=== PATIENT | female | born 1985 | race Caucasian/White ===

== ENCOUNTER 2017-08-27 19:39 | Emergency (ER) | payer OTHER, SELFPAY ==
--- NOTE | 2017-08-27 20:42 | ER ---
Nurse's Notes [facility] Name: Marilin Douglas Age: 32 yrs Sex: Female : 1985 Arrival Date: 08/27/2017 Time: 19:40 Bed 15 Private MD: Diagnosis: Cutaneous abscess of abdominal wall Presentation: 08/27 19:55 Presenting complaint: Patient states: She noticed an abscess form on her abdomen 2 days ea ago, today she started to have pain to the area, when she arrived to ED she noticed the abscess had opened up. Transition of care: patient was not received from another setting of care. Onset of symptoms was August 27, 2017. Risk Assessment: Do you want to hurt yourself or someone else? Patient reports no desire to harm self or others. Initial Sepsis Screen: Does the patient meet any 2 criteria? No. Patient's initial sepsis screen is negative. Does the patient have a suspected source of infection? Yes: Other: purulent draining from abscess. Care prior to arrival: None. 19:55 Method Of Arrival: Ambulatory ea 19:55 Acuity: ZAKIA 4 ea Triage Assessment: 19:59 General: Appears uncomfortable, Behavior is appropriate for age. Pain: Complains of ea pain in abdomen. Derm: abscess to left lower abdominal quadrant with purulent drainage noted. 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 - Social history:: Smoking status: Patient uses tobacco products, denies chronic smoking, but will smoke occasionally. - Ebola Screening: : No symptoms or risks identified at this time. Screenin:01 Abuse screen: Denies threats or abuse. Nutritional screening: No deficits noted. ea Tuberculosis screening: No symptoms or risk factors identified. Fall Risk None identified. Assessment: 19:51 General: Appears uncomfortable, Behavior is anxious. Pain: Complains of pain in left jd3 lower quadrant. Neuro: Level of Consciousness is awake, alert, obeys commands, Oriented to person, place, time, situation. Cardiovascular: Capillary refill < 3 seconds Patient's skin is warm and dry. Respiratory: Airway is patent Respiratory effort is even, unlabored, Respiratory pattern is regular, symmetrical, Breath sounds are clear bilaterally. GI: Abdomen is round Bowel sounds present X 4 quads. Abd is soft Abdomen is tender to palpation in left lower quadrant Reports lower abdominal pain. : No signs and/or symptoms were reported regarding the genitourinary system. EENT: Derm: Skin is intact, Skin is dry, Skin is normal, Skin temperature is warm Abscess located on left lower quadrant is orange sized has purulent drainage, has foul odor, is hot to touch, is red, is raised. Musculoskeletal: Circulation, motion, and sensation intact. Range of motion: intact in all extremities. 20:50 Reassessment: pt reusing care care until family could be present. pt with unknown jd3 location or how long family will take to get to the hospital. pt signed AMA form and walked with even and steady gait out front of ER. Vital Signs: 20:00 BP 134 / 96; Pulse 98; Resp 18; Temp 98.4; Pulse Ox 100% on R/A; Weight 77.11 kg; ea Height 5 ft. 2 in. (157.48 cm); Pain 10/10; 20:00 Body Mass Index 31.09 (77.11 kg, 157.48 cm) ea ED Course: 19:40 Patient arrived in ED. ds1 19:51 Preet Walsh, LISA is Primary Nurse. jd3 19:55 Rickey Ngo NP is PHCP. pm1 19:55 Anand Nick MD is Attending Physician. pm1 19:57 Triage completed. ea 20:01 Arm band placed on right wrist. Patient placed in an exam room, on a stretcher. ea 20:01 Patient has correct armband on for positive identification. Bed in low position. Call ea light in reach. Side rails up X 1. 20:28 Radiology exam delayed due to pt stated she is not having exam done until family member cy arrives. 20:47 No provider procedures requiring assistance completed. Patient did not have IV access jd3 during this emergency room visit. Administered Medications: 20:53 Not Given (Patient Refused): Tetanus-Diphtheria Toxoid Adult 0.5 ml IM once jd3 Outcome: 20:47 Patient left the ED. jd3 20:47 AMA AMA form signed jd3 20:47 Condition: stable 20:47 Instructed on follow up and referral plans. Demonstrated understanding of instructions. Signatures: Maisha Anthony ds1 Rickey Ngo NP ALGOLOGY TEACHER pm1 Anahy Flores RN RN ea Davies, Jonathon, RN RN jd3 Yong, Chheannith cy
--- NOTE | 2017-08-27 20:42 | EDPHYS ---
Physician Documentation [facility] Name: Marilin Douglas Age: 32 yrs Sex: Female : 1985 Arrival Date: 08/27/2017 Time: 19:40 Bed 15 Private MD: ED Physician Anand Nick HPI: 08/27 20:05 This 32 yrs old Female presents to ER via Ambulatory with complaints of pm1 Abscess. 20:05 The patient presents with an abscess of the left lower quadrant. Description: draining, pm1 raised. Onset: The symptoms/episode began/occurred 2 day(s) ago. Possible cause(s): unknown, drug abuse - patient skin pops with heroine. Associated signs and symptoms: Pertinent negatives: fever. Modifying factors: the symptoms are aggravated by squeezing the lesion and expressing the contents, touching. Severity of symptoms: in the emergency department the symptoms are actually worse. The patient has experienced similar episodes in the past, multiple times. The patient has not recently seen a physician, and does not have an established primary care provider. 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 - Social history:: Smoking status: Patient uses tobacco products, denies chronic smoking, but will smoke occasionally. - Ebola Screening: : No symptoms or risks identified at this time. ROS: 20:05 Constitutional: Negative for fever, chills, and weight loss, Eyes: Negative for injury, pm1 pain, redness, and discharge, ENT: Negative for injury, pain, and discharge, Neck: Negative for injury, pain, and swelling, Cardiovascular: Negative for chest pain, palpitations, and edema, Respiratory: Negative for shortness of breath, cough, wheezing, and pleuritic chest pain, Abdomen/GI: Negative for abdominal pain, nausea, vomiting, diarrhea, and constipation, Back: Negative for injury and pain, MS/Extremity: Negative for injury and deformity. 20:05 Neuro: Negative for headache, weakness, numbness, tingling, and seizure. 20:05 Skin: Positive for abscess, of the left lower quadrant. Exam: 20:05 Constitutional: This is a well developed, well nourished patient who is awake, alert, pm1 and in no acute distress. Head/Face: Normocephalic, atraumatic. Chest/axilla: Normal chest wall appearance and motion. Nontender with no deformity. No lesions are appreciated. Cardiovascular: Regular rate and rhythm with a normal S1 and S2. No gallops, murmurs, or rubs. Normal PMI, no JVD. No pulse deficits. Respiratory: Lungs have equal breath sounds bilaterally, clear to auscultation and percussion. No rales, rhonchi or wheezes noted. No increased work of breathing, no retractions or nasal flaring. Abdomen/GI: Soft, non-tender, with normal bowel sounds. No distension or tympany. No guarding or rebound. No evidence of tenderness throughout. Back: No spinal tenderness. No costovertebral tenderness. Full range of motion. 20:05 MS/ Extremity: Pulses equal, no cyanosis. Neurovascular intact. Full, normal range of motion. 20:05 Skin: Appearance: normal except for affected area, abscess, that is large, approximately 7 cm(s), of the left lower quadrant, with drainage, with fluctuance. 20:05 Neuro: Orientation: is normal, Motor: is normal, moves all fours. Vital Signs: 20:00 BP 134 / 96; Pulse 98; Resp 18; Temp 98.4; Pulse Ox 100% on R/A; Weight 77.11 kg; ea Height 5 ft. 2 in. (157.48 cm); Pain 10/10; 20:00 Body Mass Index 31.09 (77.11 kg, 157.48 cm) ea MDM: 20:00 Patient medically screened. pm1 20:36 Data reviewed: vital signs. Data interpreted: Pulse oximetry: on room air is 100 %. pm1 Interpretation: normal. Refusal of service: The patient/guardian displays adequate decision making capability and despite a detailed discussion of alternatives, benefits, risks, and consequences refuses: Refused the ultrasound and IV saline lock. Patient does not want treatment now and wants her boyfriend present prior to doing any work up. Administered Medications: 20:53 Not Given (Patient Refused): Tetanus-Diphtheria Toxoid Adult 0.5 ml IM once jd3 Disposition: 08/28 08:09 Co-signature as Attending Physician, Anand Nick MD I agree with the assessment and dae plan of care. Disposition: 08/27/17 20:41 Patient has left against medical advice. Impression: Cutaneous abscess of abdominal wall. - Patients states they are going to Home. - Condition is Undetermined. - Discharge Instructions: Abscess, Incision and Drainage. - Prescriptions for Clindamycin HCl 300 mg Oral Capsule - take 1 capsule by ORAL route every 6 hours for 10 days; 40 capsule. Bactrim DS 800- 160 mg Oral Tablet - take 1 tablet by ORAL route every 12 hours for 10 days; 20 tablet. Follow up: Emergency Department; When: As needed; Reason: Worsening of condition. Follow up: Private Physician; When: Upon discharge from the Emergency Department; Reason: Wound Recheck, Recheck today's complaints, Continuance of care, Re-evaluation by your physician. - Problem is new. - Symptoms are unchanged. Signatures: Dispatcher [employer] EDAnand Dutton MD MD cha Marinas, Patrick, GAS TORCH BRAZIER GAS TORCH BRAZIER pm1 Anahy Flores RN RN ea Davies, Jonathon, RN RN jd3 Corrections: (The following items were deleted from the chart) 08/27 20:47 20:41 08/27/2017 20:41 Patients has left against medical advice. Impression: Cutaneous jd3 abscess of abdominal wall. Patient states they are going to Home. Condition is Undetermined. Follow up: Emergency Department; When: As needed; Reason: Worsening of condition. Follow up: Private Physician; When: Upon discharge from the Emergency Department; Reason: Wound Recheck, Recheck today's complaints, Continuance of care, Re-evaluation by your physician. Problem is new. Symptoms are unchanged. pm1
[2017-08-27 20:50] VITALS: BP 134/96; TEMP 98.4; O2SAT 100
== END 2017-08-27 20:47 | disposition left against medical advice (07) ==
LOC: ER 19:39
DX: L02.211 Cutaneous abscess of abdominal wall (principal); F17.200 Nicotine dependence, unspecified, uncomplicated
CPT/HCPCS: 99281

== ENCOUNTER 2017-08-28 02:28 | Inpatient (IN) | payer SELFPAY ==
[2017-08-28] MEDS ORDERED: CLINDAMYCIN 600MG/D5W 0 MG/0 ML BAG IV ONE (03:05)
[2017-08-28] MEDS ORDERED: NA CHLORIDE 0.9% 1,000 ML ONE (03:06)
[2017-08-28] MEDS ORDERED: VANCOMYCIN 0 GM/0 ML BAG ONE (03:06)
[2017-08-28] MEDS ORDERED: CLINDAMYCIN 900MG/D5W 900 MG/50 ML BAG IV ONE (03:15)
--- NOTE | 2017-08-28 03:21 | EDPHYS ---
Physician Documentation [facility] Name: Marilin Douglas Age: 32 yrs Sex: Female : 1985 Arrival Date: 08/28/2017 Time: 02:28 Bed 20 Private MD: ED Physician Anand Nick HPI: 08/28 03:15 This 32 yrs old Female presents to ER via Ambulatory with complaints of dae Abscess. 03:15 The patient presents with an abscess of the left lower quadrant. Description: The dae affected area is moderate sized, confluent, well demarcated. Onset: The symptoms/episode began/occurred 3 day(s) ago. Possible cause(s): unknown. Associated signs and symptoms: The patient has no apparent associated signs or symptoms. Severity of symptoms: At their worst the symptoms were mild, moderate, in the emergency department the symptoms are unchanged. The patient has not experienced similar symptoms in the past. 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 - Social history:: Smoking status: Patient uses tobacco products, smokes one pack cigarettes per day. - Ebola Screening: : No symptoms or risks identified at this time. - Family history:: not pertinent. ROS: 03:15 Constitutional: Negative for fever, chills, and weight loss, Eyes: Negative for injury, dae pain, redness, and discharge, ENT: Negative for injury, pain, and discharge, Neck: Negative for injury, pain, and swelling, Cardiovascular: Negative for chest pain, palpitations, and edema, Respiratory: Negative for shortness of breath, cough, wheezing, and pleuritic chest pain, Back: Negative for injury and pain, : Negative for injury, bleeding, discharge, and swelling, MS/Extremity: Negative for injury and deformity, Neuro: Negative for headache, weakness, numbness, tingling, and seizure, Psych: Negative for depression, anxiety, suicide ideation, homicidal ideation, and hallucinations, Allergy/Immunology: Negative for hives, rash, and allergies, Endocrine: Negative for neck swelling, polydipsia, polyuria, polyphagia, and marked weight changes, Hematologic/Lymphatic: Negative for swollen nodes, abnormal bleeding, and unusual bruising. 03:15 Abdomen/GI: Positive for abdominal pain, of the left lower quadrant. 03:15 Skin: Positive for cellulitis, swelling, of the left lower quadrant. Exam: 03:15 Constitutional: This is a well developed, well nourished patient who is awake, alert, dae and in no acute distress. Head/Face: Normocephalic, atraumatic. Eyes: Pupils equal round and reactive to light, extra-ocular motions intact. Lids and lashes normal. Conjunctiva and sclera are non-icteric and not injected. Cornea within normal limits. Periorbital areas with no swelling, redness, or edema. ENT: Nares patent. No nasal discharge, no septal abnormalities noted. Tympanic membranes are normal and external auditory canals are clear. Oropharynx with no redness, swelling, or masses, exudates, or evidence of obstruction, uvula midline. Mucous membranes moist. Neck: Trachea midline, no thyromegaly or masses palpated, and no cervical lymphadenopathy. Supple, full range of motion without nuchal rigidity, or vertebral point tenderness. No Meningismus. Chest/axilla: Normal chest wall appearance and motion. Nontender with no deformity. No lesions are appreciated. Respiratory: Lungs have equal breath sounds bilaterally, clear to auscultation and percussion. No rales, rhonchi or wheezes noted. No increased work of breathing, no retractions or nasal flaring. Back: No spinal tenderness. No costovertebral tenderness. Full range of motion. MS/ Extremity: Pulses equal, no cyanosis. Neurovascular intact. Full, normal range of motion. Neuro: Awake and alert, GCS 15, oriented to person, place, time, and situation. Cranial nerves II-XII grossly intact. Motor strength 5/5 in all extremities. Sensory grossly intact. Cerebellar exam normal. Normal gait. Psych: Awake, alert, with orientation to person, place and time. Behavior, mood, and affect are within normal limits. 03:15 Cardiovascular: Rate: tachycardic, Rhythm: regular, Pulses: Pulses are 4+ in bilateral radial, brachial, femoral, popliteal, posterior tibial and and dorsalis pedis arteries.. Heart sounds: normal, Edema: is not appreciated, JVD: is not appreciated. Vital Signs: 02:43 BP 131 / 90; Pulse 104; Resp 18; Temp 98.7(O); Pulse Ox 98% on R/A; Weight 72.57 kg; ea Height 5 ft. 2 in. (157.48 cm); Pain 9/10; 03:57 BP 128 / 95; Pulse 100; Resp 18; Pulse Ox 100% on R/A; ea 04:45 BP 115 / 59; Pulse 68; Resp 18; Pulse Ox 99% on R/A; ea 05:46 BP 115 / 59; Pulse 55; Resp 18 S; Temp 97.8; Pulse Ox 99% on R/A; ea 02:43 Body Mass Index 29.26 (72.57 kg, 157.48 cm) ea MDM: 02:55 Patient medically screened. [facility] 03:15 Data reviewed: vital signs, nurses notes, lab test result(s). [facility] 08/28 02:52 Order name: CBC with Diff [facility] 08/28 02:52 Order name: Chem 7 [facility] 08/28 02:52 Order name: Urine Culture [facility] 08/28 02:52 Order name: Urine Drug Screen; Complete Time: 05:05 snw 08/28 02:53 Order name: CBC with Automated Diff; Complete Time: 05:05 EDMS 08/28 02:53 Order name: Basic Metabolic Panel; Complete Time: 05:05 EDMS 08/28 03:26 Order name: Basic Metabolic Panel EDMS 08/28 03:26 Order name: Basic Metabolic Panel EDMS 08/28 03:26 Order name: CBC with Automated Diff EDMS 08/28 03:26 Order name: CBC with Automated Diff EDMS 08/28 03:31 Order name: Test, Urine; Complete Time: 05:05 EDMS 08/28 02:52 Order name: SL; Complete Time: 03:10 snw 08/28 02:52 Order name: Urine Test (obtain specimen); Complete Time: 04:40 snw 08/28 02:52 Order name: Urine Dipstick-Ancillary (obtain specimen); Complete Time: 04:40 snw 08/28 03:26 Order name: NPO; Complete Time: 04:00 EDMS 08/28 03:31 Order name: Urinalysis W/Microscopic; Complete Time: 05:05 EDMS Administered Medications: 03:13 Not Given (Duplicate Order): vancoMYCIN 1 grams IVPB once over 2 hrs dae 03:18 Not Given (Physician Discretion): Clindamycin 600 mg IVPB once over 30 mins; (mix in 50 jd3 mL) 03:40 Drug: fentaNYL (PF) 25 mcg Route: IVP; Site: right antecubital; ea 04:30 Follow up: Response: No adverse reaction; Pain is decreased ea 03:40 Drug: Zofran 4 mg Route: IVP; Site: right antecubital; ea 04:30 Follow up: Response: No adverse reaction ea 04:39 Drug: NS 0.9% 1000 ml {Note: left midline.} Route: IV; Rate: 1 bolus; Site: Other; ea 05:04 Follow up: Response: No adverse reaction; IV Status: Completed infusion; IV Intake: ea 1000ml 04:40 Drug: Ancef 2 grams {Note: left midline.} Route: IVPB; Infused Over: 30 mins; Site: ea Other; 05:04 Follow up: Response: No adverse reaction; IV Status: Completed infusion ea 04:41 Drug: Clindamycin 900 mg {Note: left midline.} Route: IVPB; Infused Over: 30 mins; ea Site: Other; 05:05 Follow up: Response: No adverse reaction; IV Status: Completed infusion ea 04:58 Drug: fentaNYL (PF) 25 mcg {Note: left midline.} Route: IVP; Site: Other; ea 05:16 Follow up: Response: No adverse reaction; Pain is decreased ea 05:06 Drug: NS 0.9% 1000 ml {Note: left upper arm.} Route: IV; Rate: 125 ml/hr; Site: Other; ea 05:40 Follow up: IV Status: Infusion continued upon admission ea 05:37 Drug: Rocephin - (cefTRIAXone) 1 grams {Note: left midline.} Route: IVPB; Infused Over: ea 30 mins; Site: Other; 05:53 Follow up: Response: No adverse reaction; IV Status: Completed infusion ea 05:39 Drug: Zofran 4 mg {Note: left upper arm.} Route: IVP; Site: Other; ea 05:53 Follow up: Response: No adverse reaction; Marked relief of symptoms ea Disposition: 08/28/17 03:20 Hospitalization ordered by Barron Osuna for Observation. Preliminary diagnosis are Cutaneous abscess of abdominal wall, Cystitis. - Bed requested for Telemetry/MedSurg (observation). - Status is Observation. ea - Condition is Stable. - Problem is new. - Symptoms are unchanged. UTI on Admission? No Signatures: Dispatcher [employer] EDMS Stephanie Tee RN RN kl Anderson, Corey, MD MD cha Therrien, Shelly, ASSISTANT PROFESSOR OF MARINE BIOLOGY-C ASSISTANT PROFESSOR OF MARINE BIOLOGY-Csnw Tabitha Canada ms Anahy Flores RN RN ea Davies, Jonathon RN jd3 Corrections: (The following items were deleted from the chart) 03:20 02:53 Blood Culture ordered. EDMS EDMS 03:31 02:53 UA MICROSCOPIC+U.LAB.BRZ ordered. EDIN EDMS 05:06 03:20 Hospitalization Ordered by Barron Osuna MD for Observation. Preliminary dae diagnosis is Cutaneous abscess of abdominal wall. Bed requested for Telemetry/MedSurg (observation). Status is Observation. Condition is Stable. Problem is new. Symptoms are unchanged. UTI on Admission? No. dae 05:30 05:06 08/28/2017 03:20 Hospitalization Ordered by Barron Osuna MD for Observation. kl Preliminary diagnosis is Cutaneous abscess of abdominal wall; Cystitis. Bed requested for Telemetry/MedSurg (observation). Status is Observation. Condition is Stable. Problem is new. Symptoms are unchanged. UTI on Admission? No. dae 05:32 05:30 08/28/2017 03:20 Hospitalization Ordered by Barron Osuna MD for Observation. kl Preliminary diagnosis is Cutaneous abscess of abdominal wall; Cystitis. Bed requested for Telemetry/MedSurg (observation). Status is Observation. Condition is Stable. Problem is new. Symptoms are unchanged. UTI on Admission? No. kl 05:33 05:32 08/28/2017 03:20 Hospitalization Ordered by Barron Osuna MD for Observation. ms Preliminary diagnosis is Cutaneous abscess of abdominal wall; Cystitis. Bed requested for Telemetry/MedSurg (observation). Status is Observation. Condition is Stable. Problem is new. Symptoms are unchanged. UTI on Admission? No. ciaran 05:53 05:33 08/28/2017 03:20 Hospitalization Ordered by Barron Osuna MD for Observation. ea Preliminary diagnosis is Cutaneous abscess of abdominal wall; Cystitis. Bed requested for Telemetry/MedSurg (observation). Status is Observation. Condition is Stable. Problem is new. Symptoms are unchanged. UTI on Admission? No. ms
--- NOTE | 2017-08-28 03:21 | ER ---
Nurse's Notes [facility] Name: Marilin Douglas Age: 32 yrs Sex: Female : 1985 Arrival Date: 08/28/2017 Time: 02:28 Bed 20 Private MD: Diagnosis: Cutaneous abscess of abdominal wall;Cystitis Presentation: 08/28 02:36 Presenting complaint: Patient states: Pt reports she came to the ED earlier but left ea AMA. Pt reports the abscess to the her left lower quadrant is continuing to drain. Pt reports it started 3 days ago and opened up today. Transition of care: patient was not received from another setting of care. Onset of symptoms was August 28, 2017. Risk Assessment: Do you want to hurt yourself or someone else? Patient reports no desire to harm self or others. Initial Sepsis Screen: Does the patient meet any 2 criteria? HR > 90 bpm. Yes Does the patient have a suspected source of infection? Yes:. Care prior to arrival: None. 02:36 Method Of Arrival: Ambulatory ea 02:36 Acuity: ZAKIA 3 ea Triage Assessment: 02:41 General: Appears uncomfortable, Behavior is calm, cooperative, appropriate for age. ea Pain: Complains of pain in left lower quadrant Pain currently is 9 out of 10 on a pain scale. Quality of pain is described as aching. Neuro: Level of Consciousness is awake, alert, obeys commands, Oriented to person, place, time, situation. 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 - Social history:: Smoking status: Patient uses tobacco products, smokes one pack cigarettes per day. - Ebola Screening: : No symptoms or risks identified at this time. - Family history:: not pertinent. Screenin:45 Abuse screen: Denies threats or abuse. Nutritional screening: No deficits noted. ea Tuberculosis screening: No symptoms or risk factors identified. Fall Risk None identified. Assessment: 02:46 General: Appears uncomfortable, Behavior is calm, cooperative, appropriate for age. ea Pain: Complains of pain in left lower quadrant Pain does not radiate. Pain currently is 9 out of 10 on a pain scale. Quality of pain is described as tender, Pain began suddenly, Is continuous. Neuro: Level of Consciousness is awake, alert, obeys commands, Oriented to person, place, time, situation. Cardiovascular: Patient's skin is warm and dry. Respiratory: Airway is patent Respiratory effort is even, unlabored, Respiratory pattern is regular, symmetrical, Breath sounds are clear bilaterally. GI: Abdomen is non-distended. : No signs and/or symptoms were reported regarding the genitourinary system. Derm: Skin is pink, warm \T\ dry. Abscess located on left lower quadrant is golf ball sized, has purulent drainage, is hot to touch, is red, is raised, was lanced by patient prior to arrival. 03:50 Reassessment: Patient and/or family updated on plan of care and expected duration. Pain ea level reassessed. Patient is alert, oriented x 3, equal unlabored respirations, skin warm/dry/pink. 04:30 Reassessment: Patient and/or family updated on plan of care and expected duration. Pain ea level reassessed. Pt complaining of pain to IV site, IV infiltrated. IV discontinued, catheter intact, bleeding controlled pressure dressing applied. Pt tolerated well. Warm compress applied to right forearm. 05:08 Reassessment: Patient and/or family updated on plan of care and expected duration. Pain ea level reassessed. Patient is alert, oriented x 3, equal unlabored respirations, skin warm/dry/pink. Pt reports pain has decreased. Patient states symptoms have improved. Vital Signs: 02:43 BP 131 / 90; Pulse 104; Resp 18; Temp 98.7(O); Pulse Ox 98% on R/A; Weight 72.57 kg; ea Height 5 ft. 2 in. (157.48 cm); Pain 9/10; 03:57 BP 128 / 95; Pulse 100; Resp 18; Pulse Ox 100% on R/A; ea 04:45 BP 115 / 59; Pulse 68; Resp 18; Pulse Ox 99% on R/A; ea 05:46 BP 115 / 59; Pulse 55; Resp 18 S; Temp 97.8; Pulse Ox 99% on R/A; ea 02:43 Body Mass Index 29.26 (72.57 kg, 157.48 cm) ea ED Course: 02:28 Patient arrived in ED. am2 02:39 Triage completed. ea 02:45 Patient has correct armband on for positive identification. Bed in low position. Call ea light in reach. Side rails up X2. 02:46 Patient placed in an exam room, on a stretcher, on pulse oximetry. ea 02:54 Anahy Flores RN is Primary Nurse. ea 02:55 Anand Nick MD is Attending Physician. dae 03:19 Barron Osuna MD is Hospitalizing Provider. dae 03:30 Inserted saline lock: 20 gauge in right antecubital area, using aseptic technique. ea Blood collected. 04:30 Inserted 18 gauge 10 cm midline to left upper basilic vein on first attempt. Line with fc good blood return and flushes well. 04:30 IV discontinued, intact, bleeding controlled, No redness/swelling at site. Pressure ea dressing applied. 05:40 No provider procedures requiring assistance completed. ea Administered Medications: 03:13 Not Given (Duplicate Order): vancoMYCIN 1 grams IVPB once over 2 hrs dae 03:18 Not Given (Physician Discretion): Clindamycin 600 mg IVPB once over 30 mins; (mix in 50 jd3 mL) 03:40 Drug: fentaNYL (PF) 25 mcg Route: IVP; Site: right antecubital; ea 04:30 Follow up: Response: No adverse reaction; Pain is decreased ea 03:40 Drug: Zofran 4 mg Route: IVP; Site: right antecubital; ea 04:30 Follow up: Response: No adverse reaction ea 04:39 Drug: NS 0.9% 1000 ml {Note: left midline.} Route: IV; Rate: 1 bolus; Site: Other; ea 05:04 Follow up: Response: No adverse reaction; IV Status: Completed infusion; IV Intake: ea 1000ml 04:40 Drug: Ancef 2 grams {Note: left midline.} Route: IVPB; Infused Over: 30 mins; Site: ea Other; 05:04 Follow up: Response: No adverse reaction; IV Status: Completed infusion ea 04:41 Drug: Clindamycin 900 mg {Note: left midline.} Route: IVPB; Infused Over: 30 mins; ea Site: Other; 05:05 Follow up: Response: No adverse reaction; IV Status: Completed infusion ea 04:58 Drug: fentaNYL (PF) 25 mcg {Note: left midline.} Route: IVP; Site: Other; ea 05:16 Follow up: Response: No adverse reaction; Pain is decreased ea 05:06 Drug: NS 0.9% 1000 ml {Note: left upper arm.} Route: IV; Rate: 125 ml/hr; Site: Other; ea 05:40 Follow up: IV Status: Infusion continued upon admission ea 05:37 Drug: Rocephin - (cefTRIAXone) 1 grams {Note: left midline.} Route: IVPB; Infused Over: ea 30 mins; Site: Other; 05:53 Follow up: Response: No adverse reaction; IV Status: Completed infusion ea 05:39 Drug: Zofran 4 mg {Note: left upper arm.} Route: IVP; Site: Other; ea 05:53 Follow up: Response: No adverse reaction; Marked relief of symptoms ea Intake: 05:04 IV: 1000ml; Total: 1000ml. ea Outcome: 03:20 Decision to Hospitalize by Provider. dae 05:40 Instructed on the need for admit. ea 05:52 Admitted to Med/surg accompanied by tech, via wheelchair, room 215, with chart, Report ea called to Butch GONZALEZ 05:52 Condition: stable 05:53 Patient left the ED. ea Signatures: Anand Nick MD MD cha Chretien, Felicia, RN RN Aliyah Morgan Elena, RN RN ea Davies, Jonathon RN jd3 Corrections: (The following items were deleted from the chart) 05:08 04:30 Reassessment: Patient and/or family updated on plan of care and expected ea duration. Pain level reassessed. ea
[2017-08-28] MEDS ORDERED: MORPHINE 2 MG/ML SYR IV PRN (03:23)
[2017-08-28] MEDS ORDERED: ONDANSETRON 4 MG/2 ML VIAL IV PRN (03:23)
[2017-08-28] MEDS ORDERED: ACETAMINOPHEN 500 MG TAB PO PRN (03:23)
[2017-08-28] MEDS ORDERED: CEFAZOLIN/SWI 1gm 2 GM/20 ML SYR ONE (03:24)
[2017-08-28] MEDS ORDERED: FENTANYL CITR 100 MCG/2 ML ONE (03:29)
[2017-08-28 03:37] LABS: Absolute Lymphocytes (CBC) 2.7 K/uL (0.7-4.9); Absolute Monocytes 0.7 K/uL (0.1-1.3); Absolute Neutrophil 5.2 K/uL (1.8-8.0); Basophils % 0.8 % (0-1.3); Eosinophils % 0.8 % (0-4.4); Hematocrit 35.9 % (36.0-45.0); MCH 32.1 pg (27.0-35.0); MCV 90.8 fL (80-100); MPV 7.2 fL (7.6-11.3); Monocytes % 7.4 % (3.3-12.3); RBC Red Blood Cell Count 3.95 M/uL (3.86-4.86)
[2017-08-28 03:40] LABS: Specific Gravity >= 1.030 (1.005-1.030); Urine Appearance CLOUDY; Urine Blood NEGATIVE (NEG); Urine Color DK YELLOW; Urine Glucose NEGATIVE (NEG); Urine Protein 1+ (NEG); Urine Specific Gravity >=1.030 (1.005-1.030)
[2017-08-28 03:42] LABS: Urine Bilirubin NEGATIVE (NEG)
[2017-08-28 03:46] LABS: Barbiturates NEGATIVE (NEGATIVE); Benzodiazepines POSITIVE (NEGATIVE); Cocaine NEGATIVE (NEGATIVE); METHAMPHETAM POSITIVE (NEGATIVE); Methadone POSITIVE (NEGATIVE); Opiates POSITIVE (NEGATIVE); Phencyclidine NEGATIVE (NEGATIVE); THC Cannibis NEGATIVE (NEGATIVE)
[2017-08-28 03:49] LABS: Urine Bacteria 20-50 /HPF (<20); Urine Culture Reflex Order NOT NEEDED; Urine Mucus MOD /HPF (NONE SEEN); Urine RBC NONE SEEN /HPF (NONE SEEN)
[2017-08-28 03:55] LABS: BUN Blood Urea Nitrogen 16 mg/dL (7-18); Bicarbonate 29 mmol/L (21-32); Glucose Level 96 mg/dL (74-106); Potassium 3.9 mmol/L (3.5-5.1); Sodium Level 139 mmol/L (136-145)
[2017-08-28] MEDS: NA CHLORIDE 0.9% 1,000 ML IV SCH ×3 (04:00→21:55)
[2017-08-28] MEDS ORDERED: CEFTRIAXONE/SWI 1gm 1 GM/10 ML SYR ONE ×2 (05:30)
[2017-08-28] MEDS ORDERED: ONDANSETRON 4 MG/2 ML VIAL ONE (05:38)
[2017-08-28] MEDS ORDERED: CEFAZOLIN/NS 1gm 1 GM/50 ML BAG IVPB SCH (06:00)
[2017-08-28 06:30] VITALS: BMI 29.1
[2017-08-28] MEDS: MORPHINE 4 MG/ML SYR IV PRN ×3 (08:57→21:55)
[2017-08-28] MEDS: CLINDAMYCIN INJ 900 MG in NA CHLORIDE 0.9% 50 ML IV SCH ×2 (09:00→18:21)
[2017-08-28] MEDS ORDERED: CEFAZOLIN/SWI 1gm 1 GM/10 ML SYR IV SCH (12:00)
--- NOTE | 2017-08-28 17:07 | HP ---
Date of Admission: 08/28/2017 Diagnosis: Abdominal wall cellulitis. History Of Present Illness: Is the case of a 32-year-old patient, comes to us with 3-day history of abdominal wall cellulitis associated with increased temperature and tenderness. The patient was seen in the ER this morning. When she came, they believed they could not handle her in the ER and they a sked me to this morning to see I admit the patient for possible surgical intervention. The patient d enies any trauma. Denies any dysuria, hematuria, hematochezia, or melena. Denies any recent travell ing out of the country. Denies any family member sick at home. Allergies: NONE. Medications: Adderall, Ambien, Effexor, Xanax. Past Medical History: ADD and anxiety. Social History: The patient smokes a pack a day. Review of Systems: Constitutional: Denies any fever. Respiratory: Denies any shortness of breath. Gastrointestinal: Denies any nausea or vomiting. Genitourinary: Denies any dysuria, hematuria, any vaginal discharge. Physical Examination: General: The patient is awake and alert. HEENT: Pupils equal, reactive, anicteric. Neck: Supple. Chest: Clear. Abdomen: Left lower quadrant abdomen with about 15 x 20 cm area of cellulitis with induration presen t. No fluctuance at this moment. Apparently she has some discharge before, although it is not disch arging at this moment. No crepitus present. Rest of the abdomen is soft and depressible. Breasts: Deferred Pelvic: Deferred. Rectal: Deferred. Neuro: Cranial nerves 2 through 12 grossly within normal limits. Extremities: Good capillary refill. No cyanosis. Laboratory Data: Blood work shows WBC count of 8 with hemoglobin at 12, potassium 3.9. UA, nitrite positive, wbc's count 20-50. Assessment: This is a 32-year-old patient with cellulitis of the abdominal wall. The area is deline ating and she may need incision and drainage with benefits, alternatives, and risks including, but no t limited to infection, bleeding, damage to adjacent structures, anesthesia complication, recurrence, IA, and even . She also understands she may require wound care. We are going to examine her o nce again tomorrow to see if this matures into an abscess, then we will proceed accordingly. So, we asked her to be n.p.o. after midnight. In the meantime, we are going to treat her with antibiotics. She understands the importance of no trauma over the area. She said she has multiple infections in the past. I do not see any culture, but I notice there is a healing infection too. We are going to proceed. We are going to change to Gina. SUSANNA Voice ID: [id number]
[2017-08-28] MEDS: CIPROFLOXACIN 400mg IV 400 MG/200 ML BAG IV SCH (21:55)
[2017-08-29] MEDS: CLINDAMYCIN INJ 900 MG in NA CHLORIDE 0.9% 50 ML IV SCH ×3 (00:09→17:17)
[2017-08-29] MEDS: MORPHINE 4 MG/ML SYR IV PRN ×4 (04:13→21:19)
[2017-08-29] MEDS: NA CHLORIDE 0.9% 1,000 ML IV SCH ×3 (04:14→20:09)
[2017-08-29 05:56] LABS: Absolute Lymphocytes (CBC) 2.4 K/uL (0.7-4.9); Absolute Monocytes 0.4 K/uL (0.1-1.3); Absolute Neutrophil 1.7 K/uL (1.8-8.0); Basophils % 0.9 % (0-1.3); Eosinophils % 4.8 % (0-4.4); Hematocrit 29.4 % (36.0-45.0); Lymphocytes % 49.6 % (15.3-44.8); MCH 32.4 pg (27.0-35.0); MCV 92.3 fL (80-100); MPV 7.6 fL (7.6-11.3); Monocytes % 8.9 % (3.3-12.3); RBC Red Blood Cell Count 3.19 M/uL (3.86-4.86)
[2017-08-29 06:12] LABS: BUN Blood Urea Nitrogen 14 mg/dL (7-18); Bicarbonate 33 mmol/L (21-32); Glucose Level 76 mg/dL (74-106); Potassium 3.9 mmol/L (3.5-5.1); Sodium Level 143 mmol/L (136-145)
[2017-08-29 08:06] LABS: Blood Morphology Comment NOT SEEN (NOT SEEN); Platelet Estimate INCR
[2017-08-29] MEDS: CIPROFLOXACIN 400mg IV 400 MG/200 ML BAG IV SCH ×2 (09:20→20:09)
[2017-08-29] MEDS ORDERED: LIDOCAINE 2% MPF 5 ML VIAL ONE (13:36)
[2017-08-29] MEDS ORDERED: PROPOFOL 200 MG/20 ML VIAL IV ONE (13:36)
[2017-08-29] MEDS ORDERED: FENTANYL CITR 100 MCG/2 ML ONE (13:36)
[2017-08-29] MEDS ORDERED: MIDAZOLAM HCL 2 MG/2 ML INJ ONE (13:36)
[2017-08-29] MEDS ORDERED: Ringers Lactate 1,000 ML IV ONE (14:05)
[2017-08-29] MEDS ORDERED: KETOROLAC 30 MG/ML INJ ONE (14:22)
--- NOTE | 2017-08-29 14:31 | P.BOP ---
Preoperative diagnosis: abdominal wall cellulitis / abscess Postoperative diagnosis: same Primary procedure: Incision and drainage of complex abd wall abscess 20x15 cm Estimated blood loss: <10cc Specimen: pus culture Findings: complex abd wall abscess Anesthesia: General (abdomi) Complications: None Transferred to: Recovery Room Condition: Good
[2017-08-29 14:58] VITALS: O2SAT 99
--- NOTE | 2017-08-29 22:52 | OP ---
Date of Procedure: 08/29/2017 Surgeon: Barron Osuna MD Preoperative Diagnoses: Abdominal wall cellulitis and abscess. Postoperative Diagnosis: Abdominal wall cellulitis and abscess. Procedures: Incision and drainage of complex abdominal wall abscess 20 x 15 x 2 cm. Estimated Blood Loss: Less than 10 cc. Specimen: Pus and culture. Findings: Large cavity with multiple loculations. There were explored and incised. Cultures were o btained. Indications: This is the case of a female, who comes to us with abdominal pain from an abscess and c ellulitis of the abdominal wall and left lower quadrant. The patient fully explained the benefits an d risks of incision and drainage, which include, but not limited to infection, bleeding, damage to ad jacent structures, anesthesia complications, recurrence, PA, and even . She also understands th is may not relieve the symptoms. She might need more than one surgical intervention. She understood and signed consent. She understands also the importance of wound care after the surgery. It was pl anned to her in the ED details. The area of concern was marked by me and the patient in the holding room. Description Of Procedure: The patient was brought to the operating room, placed in supine position. Anesthesia was done without complication. A time-out was called. An incision was made on the left lower quadrant all the way down to the abdominal wall. The fatty muscle tissue complex ab scess. Multiple loculations were explored, opened, and irrigated. Hemostasis was obtained and the a sarah was packed with Nu Gauze 1/4 inch packing with saline. The patient tolerated the procedure well. Local anesthetic was applied over the area. The patient sent to recovery in stable condition. If the patient cannot tolerate diet, then the patient will be discharged home tomorrow. She was explain ed the dressing changes. We are going dressing changes tomorrow morning. Follow up in my office in 1 week. Call for appointment [phone]. She was explained the importance of doing dressing changes and also taking her antibiotics by mouth. JALEEL/BIBI Voice ID: [id number] Report ID: [id number]
[2017-08-30] MEDS: CLINDAMYCIN INJ 900 MG in NA CHLORIDE 0.9% 50 ML IV SCH ×2 (00:53→09:00)
[2017-08-30] MEDS: MORPHINE 4 MG/ML SYR IV PRN ×2 (00:54→05:31)
[2017-08-30] MEDS: NA CHLORIDE 0.9% 1,000 ML IV SCH (03:54)
[2017-08-30] MEDS: CIPROFLOXACIN 400mg IV 400 MG/200 ML BAG IV SCH (09:00)
[2017-08-30 10:42] VITALS: BP 109/57; TEMP 97.2
[2017-08-30] MEDS ORDERED: NICOTINE 21 MG/PAT TD ONE (20:23)
== END 2017-08-30 10:30 | disposition home or self-care (01) | DRG 581 ==
LOC: ER 02:28 → ERHOLD 03:21 → OBSVTOIN 03:21 → 2ND 05:42
PROVIDERS: ADMIT Surgery; ATTEND Surgery
PROC: 0W9F0ZZ Drainage of Abdominal Wall, Open Approach (ICD-10-PCS; principal; 2017-08-29 13:45)
DX: L02.211 Cutaneous abscess of abdominal wall (principal); L03.311 Cellulitis of abdominal wall; F98.8 Other specified behavioral and emotional disorders with onset usually occurring in childhood and adolescence; F41.9 Anxiety disorder, unspecified; F17.210 Nicotine dependence, cigarettes, uncomplicated
CPT/HCPCS: 36415; 80048; 80307; 81001; 81025; 85025; 87070; 87075; 87086; 87088; 87205; 99285; J0690; J0696; J0744; J2250; J2270; J2405; J3010; J3370; J7030

== ENCOUNTER 2018-02-18 22:17 | Emergency (ER) | payer SELFPAY ==
--- NOTE | 2018-02-19 00:41 | EDPHYS ---
Physician Documentation [facility] Name: Marilin Douglas Age: 32 yrs Sex: Female : 1985 Arrival Date: 02/18/2018 Time: 22:20 Bed 13 Private MD: ED Physician Phil Junior HPI: 02/19 06:26 This 32 yrs old Female presents to ER via Ambulatory with complaints of Cough.tw4 06:26 The patient or guardian reports cough. Onset: The symptoms/episode began/occurred tw4 today. Severity of symptoms: At their worst the symptoms were moderate, in the emergency department the symptoms. Modifying factors: The symptoms are alleviated by nothing, the symptoms are aggravated by nothing. The patient has not experienced similar symptoms in the past. 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 - Social history:: Smoking status: Patient uses tobacco products, smokes one pack cigarettes per day. Patient uses street drugs, heroin, Patient/guardian denies using alcohol. - Ebola Screening: : Patient negative for fever greater than or equal to 101.5 degrees Fahrenheit, and additional compatible Ebola Virus Disease symptoms Patient denies exposure to infectious person Patient denies travel to an Ebola-affected area in the 21 days before illness onset. ROS: 02/19 06:26 Cardiovascular: Negative for chest pain, palpitations, and edema, Respiratory: Negative tw4 for shortness of breath, cough, wheezing, and pleuritic chest pain, Abdomen/GI: Negative for abdominal pain, nausea, vomiting, diarrhea, and constipation, Back: Negative for injury and pain, MS/Extremity: Negative for injury and deformity. Constitutional: Positive for body aches, chills. ENT: Positive for Exam: 06:26 Constitutional: This is a well developed, well nourished patient who is awake, alert, tw4 and in no acute distress. Head/Face: Normocephalic, atraumatic. Chest/axilla: Normal chest wall appearance and motion. Nontender with no deformity. No lesions are appreciated. Cardiovascular: Regular rate and rhythm with a normal S1 and S2. No gallops, murmurs, or rubs. Normal PMI, no JVD. No pulse deficits. Respiratory: Lungs have equal breath sounds bilaterally, clear to auscultation and percussion. No rales, rhonchi or wheezes noted. No increased work of breathing, no retractions or nasal flaring. Abdomen/GI: Soft, non-tender, with normal bowel sounds. No distension or tympany. No guarding or rebound. No evidence of tenderness throughout. Back: No spinal tenderness. No costovertebral tenderness. Full range of motion. MS/ Extremity: Pulses equal, no cyanosis. Neurovascular intact. Full, normal range of motion. Neuro: Awake and alert, GCS 15, oriented to person, place, time, and situation. Cranial nerves II-XII grossly intact. Motor strength 5/5 in all extremities. Sensory grossly intact. Cerebellar exam normal. Normal gait. Vital Signs: 02/18 22:51 BP 142 / 98; Pulse 93; Resp 18; Temp 97.9(O); Pulse Ox 100% on R/A; Weight 74.84 kg fc (R); Height 5 ft. 3 in. (160.02 cm) (R); Pain 7/10; 22:51 Body Mass Index 29.23 (74.84 kg, 160.02 cm) fc MDM: 23:29 Patient medically screened. tw4 02/19 06:26 Differential Diagnosis: Obstructed Airway Bronchitis Influenza Sinusitis Pharyngitis tw4 Otitis Media. Data reviewed: vital signs, nurses notes. Data interpreted: court recording monitor:. Counseling: I had a detailed discussion with the patient and/or guardian regarding: the historical points, exam findings, and any diagnostic results supporting the discharge/admit diagnosis. Counseling: I had a detailed discussion with the patient and/or guardian regarding: lab results. Special discussion: Based on the patient's history, exam and DX evaluation, there is no indication for emergent intervention or inpatient TX. It is understood by the patient/guardian that if the SXs persist or worsen they need to return immediately for re-evaluation. 02/18 23:27 Order name: Flu tl2 02/18 23:27 Order name: Strep tl2 02/19 00:25 Order name: Throat Culture EDMS Administered Medications: No medications were administered Disposition: 02/19/18 00:40 Discharged to Home. Impression: viral syndrome. - Condition is Stable. - Discharge Instructions: Viral Respiratory Infection, [id number]. - Prescriptions for Radha- D 12 Hour 60-120 mg Oral Tablet Sustained Release 12 hr - take 1 tablet by ORAL route every 12 hours As needed; 20 tablet. Tessalon Perles 100 mg Oral Capsule - take 1 capsule by ORAL route every 8 hours As needed; 15 capsule. - School release form, Medication Reconciliation Form, Thank You Letter, Antibiotic Education, Prescription Opioid Use form. - Follow up: Private Physician; When: Upon discharge from the Emergency Department; Reason: If symptoms return, Recheck today's complaints, Continuance of care. - Problem is new. - Symptoms are unchanged. Signatures: Dispatcher [employer] EDTwyla Lyon RN RN Dejah Levine RN RN lp1 Phil Junior MD MD tw4 Corrections: (The following items were deleted from the chart) 00:47 00:40 02/19/2018 00:40 Discharged to Home. Impression: viral syndrome. Condition is lp1 Stable. Forms are Medication Reconciliation Form, Thank You Letter, Antibiotic Education, Prescription Opioid Use. Follow up: Private Physician; When: Upon discharge from the Emergency Department; Reason: If symptoms return, Recheck today's complaints, Continuance of care. Problem is new. Symptoms are unchanged. tw4
--- NOTE | 2018-02-19 00:41 | ER ---
Nurse's Notes [facility] Name: Marilin Douglas Age: 32 yrs Sex: Female : 1985 Arrival Date: 02/18/2018 Time: 22:20 Bed 13 Private MD: Diagnosis: viral syndrome Presentation: 02/18 22:49 Presenting complaint: Patient states: that she has cough with green sputum, fever, sore fc throat, left ear pain and runny nose that started 5 days ago. Transition of care: patient was not received from another setting of care. Onset of symptoms was February 12, 2018. Risk Assessment: Do you want to hurt yourself or someone else? Patient reports no desire to harm self or others. Initial Sepsis Screen: Does the patient meet any 2 criteria? No. Patient's initial sepsis screen is negative. Does the patient have a suspected source of infection? No. Patient's initial sepsis screen is negative. Care prior to arrival: None. 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 11/2017 fc Historical: - Allergies: 22:51 No Known Allergies; fc - Home Meds: 22:51 Adderall XR 30 mg oral cp24 1 cap twice a day [Active]; Ambien 10 mg oral tab 1 tab as fc needed [Active]; - PMHx: 22:51 ADD/ADHD; Anxiety; fc - PSHx: 22:51 Tubal ligation; tumor removed from back; fc - Immunization history:: Last tetanus immunization: unknown, Flu vaccine is not up to date. - Social history:: Smoking status: Patient uses tobacco products, smokes one pack cigarettes per day. Patient uses street drugs, heroin, Patient/guardian denies using alcohol. - Ebola Screening: : Patient negative for fever greater than or equal to 101.5 degrees Fahrenheit, and additional compatible Ebola Virus Disease symptoms Patient denies exposure to infectious person Patient denies travel to an Ebola-affected area in the 21 days before illness onset. Screenin:14 Abuse screen: Denies threats or abuse. Denies injuries from another. Nutritional lp1 screening: No deficits noted. Tuberculosis screening: No symptoms or risk factors identified. Fall Risk None identified. Assessment: 23:12 General: Appears in no apparent distress. Behavior is appropriate for age, Reports lp1 feeling ill for fatigue for. Pain: Denies pain. Neuro: Level of Consciousness is awake, alert, obeys commands. Cardiovascular: Patient's skin is warm and dry. Respiratory: Reports cough that is productive, Respiratory effort is even, unlabored, Breath sounds are clear bilaterally. the patient has mild shortness of breath. GI: No signs and/or symptoms were reported involving the gastrointestinal system. : No signs and/or symptoms were reported regarding the genitourinary system. EENT: No signs and/or symptoms were reported regarding the EENT system. Derm: Skin is pink, warm \T\ dry. Musculoskeletal: No deficits noted. Vital Signs: 22:51 BP 142 / 98; Pulse 93; Resp 18; Temp 97.9(O); Pulse Ox 100% on R/A; Weight 74.84 kg fc (R); Height 5 ft. 3 in. (160.02 cm) (R); Pain 7/10; 22:51 Body Mass Index 29.23 (74.84 kg, 160.02 cm) ED Course: 22:20 Patient arrived in ED. ag3 22:50 Triage completed. 22:51 Arm band placed on Patient placed in an exam room, on a stretcher. 23:12 Dejah Levine, RN is Primary Nurse. lp1 23:14 Patient has correct armband on for positive identification. lp1 23:28 Phil Junior MD is Attending Physician. tw4 01 00:46 No provider procedures requiring assistance completed. Patient did not have IV access lp1 during this emergency room visit. Administered Medications: No medications were administered Outcome: 00:40 Discharge ordered by . tw4 00:46 Discharged to home ambulatory, with significant other. lp1 00:46 Condition: good 00:46 Discharge instructions given to patient, Instructed on discharge instructions, follow up and referral plans. medication usage, Demonstrated understanding of instructions, follow-up care, medications, Prescriptions given X 2. 00:47 Patient left the ED. 1 Signatures: Twyla Brown RN RN Dejah Levine RN RN [facility] Phil Junior MD MD [facility] Brigid Santana [facility]
[2018-02-19 01:32] VITALS: BP 142/98; TEMP 97.9; O2SAT 100
== END 2018-02-19 00:47 | disposition home or self-care (01) ==
LOC: ER 22:17
DX: B34.9 Viral infection, unspecified (principal); F90.9 Attention-deficit hyperactivity disorder, unspecified type; F41.9 Anxiety disorder, unspecified; F17.210 Nicotine dependence, cigarettes, uncomplicated
CPT/HCPCS: 87070; 87081; 87804; 99282

== ENCOUNTER 2018-05-12 17:17 | Emergency (ER) | payer SELFPAY ==
--- OUTSIDE RECORDS SUMMARY | 2018-05-12 17:19 | XMS REPORT ---
:1985 [facility] Address [address] [place] [address] [place] [address] Care Team Providers Name Role Phone Unavailable Unavailable Unavailable Problems This patient has no known problems. Allergies, Adverse Reactions, Alerts This patient has no known allergies or adverse reactions. Medications This patient has no known medications.
[2018-05-12 20:04] LABS: Urine Blood TRACE (NEG); Urine Glucose NEGATIVE (NEG); Urine Protein 3+ (NEG); Urine Specific Gravity >1.030 (1.005-1.030); Urine pH 6.5 (5.0-7.0)
[2018-05-12 20:48] LABS: Urine Bacteria 20-50 /HPF (<20); Urine Culture Reflex Order REFLEXED; Urine RBC <5 /HPF (NONE SEEN)
[2018-05-12] MEDS ORDERED: LIDOCAINE 1% MPF 2 ML AMPULE ONE (21:11)
[2018-05-12] MEDS ORDERED: CEFTRIAXONE 1000 MG/VIAL ONE (21:11)
--- NOTE | 2018-05-12 21:19 | ER ---
Nurse's Notes [facility] Name: Marilin Douglas Age: 33 yrs Sex: Female : 1985 Arrival Date: 05/12/2018 Time: 17:19 Bed 24 Private MD: Juanjose Crandall T Diagnosis: Urinary tract infection, site not specified Presentation: 05/12 17:50 Presenting complaint: Patient states: 2 days ago, i have like a bladder infection, hj today, i cant pee and pain on my lower back; denies fever and chills; took cran morrissey pills;. Transition of care: patient was not received from another setting of care. Onset of symptoms was May 12, 2018. Risk Assessment: Do you want to hurt yourself or someone else? Patient reports no desire to harm self or others. Initial Sepsis Screen: Does the patient meet any 2 criteria? No. Patient's initial sepsis screen is negative. Does the patient have a suspected source of infection? No. Patient's initial sepsis screen is negative. Care prior to arrival: None. 17:50 Method Of Arrival: Ambulatory 17:50 Acuity: ZAKIA 4 hj Triage Assessment: 17:52 General: Appears in no apparent distress. uncomfortable, Behavior is calm, cooperative, hj appropriate for age. Pain: Complains of pain in abdomen. GI: Reports lower abdominal pain, nausea. [employer]: 17:52 LMP 04/16/2018 Historical: - Allergies: 17:51 No Known Allergies; hj - Home Meds: 17:51 Adderall XR 30 mg Oral cp24 1 cap twice a day [Active]; Ambien 10 mg Oral tab 1 tab as hj needed [Active]; - PMHx: 17:51 ADD/ADHD; Anxiety; hj - PSHx: 17:51 Tubal ligation; tumor removed from back; hj - Immunization history:: Adult Immunizations up to date. - Social history:: Smoking status: Patient uses tobacco products, Patient/guardian denies using alcohol. - Ebola Screening: : Patient negative for fever greater than or equal to 101.5 degrees Fahrenheit, and additional compatible Ebola Virus Disease symptoms Patient denies exposure to infectious person Patient denies travel to an Ebola-affected area in the 21 days before illness onset. Screenin:52 Abuse screen: Denies threats or abuse. Denies injuries from another. Nutritional screening: No deficits noted. Tuberculosis screening: No symptoms or risk factors identified. Fall Risk None identified. Assessment: 17:52 GI: Bowel sounds present X 4 quads. Abd is soft and non tender. hj 19:21 General: Appears in no apparent distress. uncomfortable, Behavior is calm, cooperative, aj1 appropriate for age. Pain: Complains of pain in suprapubic area Pain currently is 10 out of 10 on a pain scale. Neuro: Level of Consciousness is awake, alert, obeys commands, Oriented to person, place, time, situation. Cardiovascular: Patient's skin is warm and dry. Respiratory: Airway is patent Respiratory effort is even, unlabored, Respiratory pattern is regular, symmetrical. GI: Abdomen is non-distended. : Reports burning with urination, urinary frequency. EENT: No signs and/or symptoms were reported regarding the EENT system. Derm: No signs and/or symptoms reported regarding the dermatologic system. Skin is pink, warm \T\ dry. normal. Musculoskeletal: No signs and/or symptoms reported regarding the musculoskeletal system. Circulation, motion, and sensation intact. Vital Signs: 17:52 BP 113 / 81; Pulse 97; Resp 18; Temp 97.6(TE); Pulse Ox 98% on R/A; Weight 74.84 kg; hj Height 5 ft. 3 in. (160.02 cm); Pain 10/10; 19:21 BP 106 / 53; Pulse 88; Resp 18; Pulse Ox 99% on R/A; aj1 17:52 Body Mass Index 29.23 (74.84 kg, 160.02 cm) ED Course: 17:19 Patient arrived in ED. rg4 17:19 Juanjose Crandall MD is Private Physician. rg4 17:51 Triage completed. hj 17:52 Arm band placed on right wrist. hj 17:54 Patient has correct armband on for positive identification. Bed in low position. Call light in reach. Side rails up X 1. Adult w/ patient. 19:05 Eliane Slaughter, RN is Primary Nurse. aj1 19:21 No provider procedures requiring assistance completed. aj1 20:07 Luca Ron PA is PHCP. [facility] 20:07 Kush Martinez MD is Attending Physician. [facility] 20:37 Urine --Ancillary (enter results) Sent. aj1 20:37 Urine Dipstick--Ancillary (enter results) Sent. aj1 20:37 Urine Microscopic Only Sent. aj1 21:19 Juanjose Crandall MD is Referral Physician. [facility] 21:36 Patient did not have IV access during this emergency room visit. mg2 Administered Medications: 21:07 Drug: Rocephin (cefTRIAXone) 1 grams Route: IM; Site: left gluteus; aj1 21:31 Follow up: Response: No adverse reaction mg2 Outcome: 21:19 Discharge ordered by . [facility] 21:36 Discharged to home ambulatory. mg2 21:36 Condition: stable 21:36 Discharge instructions given to patient, Instructed on discharge instructions, follow up and referral plans. medication usage, Demonstrated understanding of instructions, follow-up care, medications, Prescriptions given X 1. 21:36 Patient left the ED. mg2 Signatures: Eliane Slaughter, RN RN aj1 Luca Ron PA PA [facility] Barron Meza RN RN Ansley Pascual rg4 Miguel Molina RN RN mg2 Corrections: (The following items were deleted from the chart) 17:54 17:52 74.84 kg; Height 5 ft. 3 in.; BMI: 29.2; Pain 10/10; hj hj 17:54 17:52 Pulse 97bpm; Resp 18bpm; Pulse Ox 98% RA; Temp 97.6F Temporal; 74.84 kg; Height 5 hj ft. 3 in.; BMI: 29.2; Pain 10/10; hj
--- NOTE | 2018-05-12 21:20 | EDPHYS ---
Physician Documentation [facility] Name: Marilin Douglas Age: 33 yrs Sex: Female : 1985 Arrival Date: 05/12/2018 Time: 17:19 Bed 24 Private MD: Juanjose Crandall T ED Physician Kush Martinez HPI: 05/12 20:26 This 33 yrs old Female presents to ER via Ambulatory with complaints of jmm Abdominal Pain, Back Pain, Urinary Problem. 20:26 The patient presents with abdominal pain. jmm 20:27 Onset: The symptoms/episode began/occurred gradually, 1 week(s) ago. Modifying factors: jmm The symptoms are alleviated by nothing, the symptoms are aggravated by nothing. Associated signs and symptoms: Pertinent positives: vomiting, Pertinent negatives: fever. This is a 33 year old female with a history of anxiety, ADD/ADHD that presents to the ED with complaints of painful urination and suprapubic abdominal pain. Patient states she developed vomiting earlier today. . 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 - Social history:: Smoking status: Patient uses tobacco products, Patient/guardian denies using alcohol. - Ebola Screening: : Patient negative for fever greater than or equal to 101.5 degrees Fahrenheit, and additional compatible Ebola Virus Disease symptoms Patient denies exposure to infectious person Patient denies travel to an Ebola-affected area in the 21 days before illness onset. ROS: 20:27 Constitutional: Negative for fever, chills, and weight loss, Cardiovascular: Negative jmm for chest pain, palpitations, and edema, Respiratory: Negative for shortness of breath, cough, wheezing, and pleuritic chest pain. 20:27 Abdomen/GI: Positive for abdominal pain, vomiting. 20:27 : Positive for urinary symptoms. 20:27 All other systems are negative. Exam: 20:27 Constitutional: This is a well developed, well nourished patient who is awake, alert, jmm and in no acute distress. Head/Face: atraumatic. Eyes: EOMI, no conjunctival erythema appreciated ENT: Moist Mucus Membranes Neck: Trachea midline, Supple Chest/axilla: Normal chest wall appearance and motion. Cardiovascular: Regular rate and rhythm. No edema appreciated Respiratory: Normal respirations, no respiratory distress appreciated 20:27 Abdomen/GI: Inspection: abdomen appears normal, Bowel sounds: normal, Palpation: soft, mild abdominal tenderness, in the suprapubic area, Indicators: McBurney's point is not tender. 20:27 Back: CVA tenderness, is absent, is noted bilaterally. 20:27 Skin: Appearance: Color: normal in color. 20:27 Neuro: Orientation: is normal, Mentation: is normal, Memory: is normal. 20:27 Psych: Behavior/mood is pleasant, cooperative. Vital Signs: 17:52 BP 113 / 81; Pulse 97; Resp 18; Temp 97.6(TE); Pulse Ox 98% on R/A; Weight 74.84 kg; hj Height 5 ft. 3 in. (160.02 cm); Pain 10/10; 19:21 BP 106 / 53; Pulse 88; Resp 18; Pulse Ox 99% on R/A; aj1 17:52 Body Mass Index 29.23 (74.84 kg, 160.02 cm) MDM: 20:23 Patient medically screened. [facility] 21:18 Data reviewed: vital signs, nurses notes. Counseling: I had a detailed discussion with [facility] the patient and/or guardian regarding: the historical points, exam findings, and any diagnostic results supporting the discharge/admit diagnosis, lab results, the need for outpatient follow up, to return to the emergency department if symptoms worsen or persist or if there are any questions or concerns that arise at home. 21:18 ED course: Patient is alert and non toxic in appearance in the ED. No [facility] tenderness. No CVA tenderness. UA consistent with UTI. Patient given return precautions for worsening abdominal pain, vomiting. Patient understood and agrees with the plan of care. . 05/12 17:54 Order name: Urine Microscopic Only; Complete Time: 21:14 05/12 19:31 Order name: Urine Dipstick--Ancillary (enter results) ar5 05/12 19:31 Order name: Urine --Ancillary (enter results) [facility] 05/12 19:31 Order name: Urine Dipstick-Ancillary; Complete Time: 21:14 [facility] 05/12 19:31 Order name: Urine --Ancillary; Complete Time: 21:14 [facility] 05/12 20:49 Order name: Urine Culture [facility] 05/12 17:54 Order name: Urine Dipstick-Ancillary (obtain specimen); Complete Time: 19:06 05/12 17:54 Order name: Urine Test (obtain specimen); Complete Time: 19:06 Administered Medications: 21:07 Drug: Rocephin (cefTRIAXone) 1 grams Route: IM; Site: left gluteus; aj1 21:31 Follow up: Response: No adverse reaction mg2 Disposition: 23:15 Co-signature as Attending Physician, Kush Martinez MD. pkl Disposition: 05/12/18 21:19 Discharged to Home. Impression: Urinary tract infection, site not specified. - Condition is Stable. - Discharge Instructions: Urinary Tract Infection, Adult. - Prescriptions for Cephalexin 500 mg Oral Capsule - take 1 capsule by ORAL route every 12 hours for 10 days; 20 capsule. - Medication Reconciliation Form, Thank You Letter, Antibiotic Education, Prescription Opioid Use form. - Follow up: Juanjose Crandall MD; When: 2 - 3 days; Reason: Recheck today's complaints, Continuance of care, Re-evaluation by your physician. Signatures: Dispatcher [employer] Eliane Green RN RN aj Kush Martinez MD MD pk Luca Ron PA PA [facility] Barron Meza RN RN Miguel Molina RN RN mg2 Corrections: (The following items were deleted from the chart) 21:36 21:19 05/12/2018 21:19 Discharged to Home. Impression: Urinary tract infection, site mg2 not specified. Condition is Stable. Forms are Medication Reconciliation Form, Thank You Letter, Antibiotic Education, Prescription Opioid Use. Follow up: Juanjose Crandall; When: 2 - 3 days; Reason: Recheck today's complaints, Continuance of care, Re-evaluation by your physician. carolynn
== END 2018-05-12 21:36 | disposition home or self-care (01) ==
LOC: ER 17:17
DX: N39.0 Urinary tract infection, site not specified (principal); F90.9 Attention-deficit hyperactivity disorder, unspecified type; F41.9 Anxiety disorder, unspecified
CPT/HCPCS: 81003; 81015; 81025; 87077; 87086; 87088; 87186; 96372; 99283; J2001

== ENCOUNTER 2018-11-21 21:07 | Emergency (ER) | payer SELFPAY ==
--- NOTE | 2018-11-21 22:12 | ER ---
Nurse's Notes [facility] Name: Marilin Douglas Age: 33 yrs Sex: Female : 1985 Arrival Date: 11/21/2018 Time: 21:18 Bed Waiting Private MD: Diagnosis: ED Course: 11/21 21:18 Patient arrived in ED. ds1 21:30 Patient's name was called from ER lobby. No response. aj1 21:40 Patient's name was called from ER lobby. No response. aj1 21:55 Patient's name was called from ER lobby. No response. Unable to locate patient. Will aj1 disposition as left without being seen by a provider. Administered Medications: No medications were administered Outcome: 22:12 Patient left the ED. aj1 Signatures: Eliane Slaughter RN RN aj1 Maisha Anthony ds1
== END 2018-11-21 22:12 | disposition left against medical advice (07) ==
LOC: ER 21:07
DX: Z02.9 Encounter for administrative examinations, unspecified (principal); Z53.21 Procedure and treatment not carried out due to patient leaving prior to being seen by health care provider

== ENCOUNTER 2018-11-22 17:54 | Emergency (ER) | payer SELFPAY ==
[2018-11-22 19:59] LABS: Urine Blood NEGATIVE (NEG); Urine Glucose NEGATIVE (NEG); Urine Protein NEGATIVE (NEG); Urine Specific Gravity >1.030 (1.005-1.030); Urine pH 5.5 (5.0-7.0)
[2018-11-22] MEDS ORDERED: NA CHLORIDE 0.9% 1,000 ML ONE (20:22)
[2018-11-22] MEDS ORDERED: ALPRAZOLAM 1 MG TABLET ONE (20:27)
[2018-11-22 20:51] LABS: Protime INR 0.96
[2018-11-22 20:59] LABS: Absolute Lymphocytes (CBC) 3.5 K/uL (0.7-4.9); Basophils % 0.9 % (0-1.3); Hematocrit 35.6 % (36.0-45.0); Lymphocytes % 45.9 % (15.3-44.8); MPV 7.4 fL (7.6-11.3); RBC Red Blood Cell Count 3.96 M/uL (3.86-4.86)
[2018-11-22 21:07] LABS: BUN Blood Urea Nitrogen 17 mg/dL (7-18); Bicarbonate 27 mmol/L (21-32); Glucose Level 92 mg/dL (74-106); Potassium 3.6 mmol/L (3.5-5.1); Sodium Level 138 mmol/L (136-145)
[2018-11-22] MEDS ORDERED: FENTANYL CITR 100 MCG/2 ML ONE (21:19)
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
[2018-11-22 21:58] LABS: Blood Morphology Comment NOT SEEN (NOT SEEN); Platelet Estimate INCR
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
[2018-11-22 23:39] VITALS: TEMP 98
[2018-11-22 23:40] VITALS: BP 122/82; O2SAT 99
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
== END 2018-11-22 23:28 | disposition left against medical advice (07) ==
LOC: ER 17:54
DX: R07.9 Chest pain, unspecified (principal); M54.5 Low back pain; M54.6 Pain in thoracic spine; M25.571 Pain in right ankle and joints of right foot; V48.5XXA Car driver injured in noncollision transport accident in traffic accident, initial encounter; F17.210 Nicotine dependence, cigarettes, uncomplicated; F41.9 Anxiety disorder, unspecified; F90.9 Attention-deficit hyperactivity disorder, unspecified type
CPT/HCPCS: 36415; 70450; 71260; 72125; 74177; 80048; 81003; 81025; 85025; 85610; 86850; 86900; 86901; 96361; 96374; 99284; J3010; J7030; Q9967